=== PATIENT | male | born 1990 | race Caucasian/White ===

== ENCOUNTER 2019-06-05 17:28 | Emergency (ER) | payer SELFPAY ==
[~2019-06-05] VITALS: Ht 177.8 cm; Wt 68.0 kg
[2019-06-05 17:35] VITALS: BP 146/87
== END 2019-06-05 19:09 | disposition left against medical advice (07) ==
LOC: ER 17:28
DX: R51 Headache (principal); Z53.21 Procedure and treatment not carried out due to patient leaving prior to being seen by health care provider